=== PATIENT | male | born 1955 | race Caucasian/White ===

== ENCOUNTER 2016-12-20 13:17 | Day surgery (SDC) | payer BC ==
--- NOTE | ~2016-12-20 | OP ---
Record Of Operation [facility] [address] [place]. [address] NAME: VASILE PERKINS : 57 STATUS : [facility]#: [id number] AGE: 61 ADM/REG DATE : 12/20/16 MR#: [id number] REPORT SERV DATE: 12/20/16 DICTATED BY: SARAHI HEALY DATE: 12/20/16 REPORT STATUS : Draft TRANSCRIBED BY: MODL DATE: 12/20/16 DATE OF PROCEDURE: 12/20/2016 [employer] SUPERVISOR: None. PREPROCEDURE DIAGNOSES: 1. Bilateral lower extremity pain. 2. Claudication. POSTPROCEDURE DIAGNOSES: 1. Right external iliac stenosis, 50%. 2. Right superficial femoral artery stenosis, 50%. PROCEDURE PERFORMED: 1. Ultrasound access, left common femoral artery. 2. Aortogram. 3. Right lower extremity runoff. 4. Angioplasty of the SFA using a 5-mm balloon. 5. Angioplasty of the external iliac artery using a 6-mm balloon. ANESTHESIA: MAC, local. SPECIMENS: None. ESTIMATED BLOOD LOSS: Minimal. COMPLICATIONS: None. INDICATIONS: Vasile Perkins is 61-year-old, suffers from leg pain when he walks from the thighs through his calf. His AHSAN on that side is 0.6. He was offered arteriogram. Risks, benefits, and alternatives were discussed. He understood and wished to proceed. OPERATIVE COURSE: The patient was brought to the operating room and placed in supine position on the operating room table. The patient had MAC anesthetic without complications. Groins and right leg were prepped and draped in sterile fashion. A time-out was performed, identified the correct patient, procedure, and site. We began by using ultrasound to identify the left common femoral artery, it was patent and free of disease. We anesthetized the skin and accessed the artery under ultrasound guidance. Once we had access, wire was passed in the abdominal aorta. The needle was removed. We placed a 5-Bruneian sheath over the wire. We passed the UF catheter and placed the L1 vertebral level and performed aortography. This demonstrated patency of the aorta and iliac segment on the left. On the right side, the iliac segment looked ectatic proximally in the common section and then distally it appeared small. It was difficult to tell whether flow was diminished on this side or not. We got wire accessed to the common iliac on the right and passed a wire and catheter down to the common femoral level. Right lower extremity runoff demonstrated patency of the common femoral, profunda femoris, and superficial femoral artery. The Record Of Operation [facility] [address] [place]. [address] NAME: VASILE PERKINS : 57 STATUS : [facility] PAT#: [id number] AGE: 61 ADM/REG DATE : 12/20/16 MR#: [id number] REPORT SERV DATE: 12/20/16 DICTATED BY: SARAHI HEALY DATE: 12/20/16 REPORT STATUS : Draft TRANSCRIBED BY: KENNA DATE: 12/20/16 superficial was patent throughout its course, where it met the popliteal at the adductor hiatus. There was 50% stenosis with mild flow limitation. Below the knee, there was adequate popliteal patency with runoff through a posterior tibial and peroneal branch. The anterior tibial was occluded. We gave IV heparin and allowed adequate time for circulation. We sized it to a 6-Bruneian sheath. We brought down a 5-mm balloon and performed angioplasty of the distal SFA lesion. This was two-minute angioplasty at 10 atmospheres. This gave an excellent result with no residual stenosis identified. We then backed the sheath up into the common iliac artery and performed [place] imaging of the external iliac level. There was diffuse disease of the proximal external iliac. We brought up a 6 x 40 balloon and performed three-minute angioplasty at 8 atmospheres at this location. Again, this gave a great final result with no residual stenosis. Wires and catheters were withdrawn. We wired out the sheath and brought over to the left side of the patient. We performed left lower extremity arteriogram demonstrating patency of the common femoral, profunda femoris, and superficial femoral arteries. The sheath was in good position and the common femoral was of good size for closure device. The remainder of the runoff on the left was mainly through patent popliteal and posterior tibial arteries. The peroneal was diminutive and the anterior tibial artery was occluded. We then placed a StarClose device for sheath exit, which was hemostatic without complications. Band-Aid was applied. The patient tolerated the procedure well. He was awakened and transferred to the recovery in stable condition. SUMANTH/KENNA Sarahi Healy MD / [id number] CC: MD DAVIAN Ibrahim ALEX G
[~2016-12-20 13:17] MED LIST: PRINZIDE1 TA1 PO
[2016-12-20 13:53] LABS: HEMATOCRIT 37.7 % (40.0-51.0); HEMOGLOBIN 12.1 g/dL (13.6-17.8)
[2016-12-20] MEDS ORDERED: PAXIL30 MG PO (14:00)
[2016-12-20] MEDS ORDERED: LIPITOR40 PO (14:00)
[2016-12-20] MEDS ORDERED: VOLT75 PO (14:01)
[2016-12-20] MEDS ORDERED: ABILIFY20 MG PO (14:01)
[2016-12-20] MEDS ORDERED: PLAVIX PO (14:02)
[2016-12-20 14:03] LABS: BUN (BLOOD UREA NITROGEN) 9 MG/DL (6-23); CALCIUM, SERUM 9.3 MG/DL (8.5-10.4); CHLORIDE, SERUM 107 MMOL/L (96-112); CO2 (CARBON DIOXIDE) 29 MMOL/L (24-34); CREATININE 0.84 MG/DL (0.70-1.30); GFR AFRICAN AMERICAN 110 ML/MIN (>=60); GFR NON AFRICAN AMERICAN 95 ML/MIN (>=60); GLUCOSE, SERUM 91 MG/DL (60-99); POTASSIUM, SERUM 4.4 MMOL/L (3.5-5.3); SODIUM, SERUM 141 MMOL/L (135-148)
[2016-12-20] MEDS ORDERED: ASAB PO (18:06)
== END 2016-12-20 18:23 | disposition home or self-care (01) ==
LOC: SDC 13:17 → SSU1 16:40
PROVIDERS: Student in an Organized Health Care Education/Training Program
PROC: B400YZZ Plain Radiography of Abdominal Aorta using Other Contrast (ICD-10-PCS; principal; 2016-12-20 14:45)
PROC: 047K3ZZ Dilation of Right Femoral Artery, Percutaneous Approach (ICD-10-PCS; 2016-12-20 14:45)
PROC: 047H3ZZ Dilation of Right External Iliac Artery, Percutaneous Approach (ICD-10-PCS; 2016-12-20 14:45)
DX: I70.221 Atherosclerosis of native arteries of extremities with rest pain, right leg (principal); I10 Essential (primary) hypertension; E78.5 Hyperlipidemia, unspecified; J44.9 Chronic obstructive pulmonary disease, unspecified; F32.9 Major depressive disorder, single episode, unspecified; F17.210 Nicotine dependence, cigarettes, uncomplicated; Z90.49 Acquired absence of other specified parts of digestive tract; Z82.5 Family history of asthma and other chronic lower respiratory diseases; Z79.02 Long term (current) use of antithrombotics/antiplatelets; Z79.1 Long term (current) use of non-steroidal anti-inflammatories (NSAID); Z79.899 Other long term (current) drug therapy
CPT/HCPCS: 37220; 37224; 75625; 75716; 80048; 85014; 85018; 93005; A9270-GY; C1725; C1769; C1894; J0690; J2250; J2405; J3010; Q9967